=== PATIENT | female | born 1945 | race Caucasian/White ===

== ENCOUNTER 2017-05-24 18:41 | Inpatient (IN) | payer OTHER, MEDICARE ==
[~2017-05-24] VITALS: Ht 172.7 cm; Wt 102.1 kg
[2017-05-24 18:41] VITALS: BP_SYST 119
[2017-05-24 20:10] LABS: BASOPHILS # (AUTO) 0.2 K/uL (0.0-0.2); BASOPHILS % (AUTO) 1.6 % (0.0-2.0); EOSINOPHILS % (AUTO) 0.2 % (0.0-4.0); HEMATOCRIT 42.1 % (36-48); HEMOGLOBIN 13.6 g/dL (12.0-16.0); LYMPHOCYTES # (AUTO) 1.4 K/uL (1.0-5.5); LYMPHOCYTES % (AUTO) 14.4 % (20.5-51.5); MEAN CORPUSCULAR HEMOGLOBIN 30 pg (27-31); MEAN CORPUSCULAR HGB CONC 32 % (32-36); MEAN CORPUSCULAR VOLUME 94 fL (79.0-98.0); MONOCYTES # (AUTO) 0.5 K/uL (0.0-1.0); MONOCYTES % (AUTO) 4.7 % (1.7-9.3); NEUTROPHILS # (AUTO) 7.8 K/uL (1.8-7.7); NEUTROPHILS % (AUTO) 79.1 % (40.0-70.0); PLATELET COUNT (AUTO) 312 K/uL (130-430); RED BLOOD CELL COUNT(AUTO) 4.48 MIL/uL (4.2-6.2); RED CELL DISTRIBUTION WIDTH 13.4 % (9.0-15.0); WHITE BLOOD COUNT (AUTO) 9.9 K/uL (4.8-10.8)
[2017-05-24 20:31] LABS: ANION GAP 17 (5-15); CHLORIDE 105 mmol/L (98-107); GLUCOSE 186 mg/dL (70-99); POTASSIUM 4.9 mmol/L (3.5-5.1); SODIUM SERUM 141 mmol/L (136-145); UREA NITROGEN, BLOOD 36 mg/dL (8-21)
[2017-05-24 20:35] LABS: ALANINE AMINOTRANSFERASE 19 U/L (12-78); ALBUMIN 3.8 g/dL (3.4-4.8); ASPARTATE AMINOTRANSFERASE 19 U/L (10-37); LIPASE 85 U/L (73-393); TOTAL BILIRUBIN 0.8 mg/dL (0.0-1.0)
[2017-05-24 21:09] LABS: BILIRUBIN,URINE NEGATIVE (NEGATIVE); BLOOD, URINE NEGATIVE (NEGATIVE); CLARITY/URINE HAZY (CLEAR); GLUCOSE,URINE NEGATIVE (NEGATIVE); KETONES,URINE NEGATIVE (NEGATIVE); LEUKOCYTE ESTERASE ,URINE NEGATIVE (NEGATIVE); NITRITE, URINE POSITIVE (NEGATIVE); PH,URINE 5.5 (5.0-8.0); PROTEIN URINE 1+ (NEGATIVE)
[2017-05-24 21:12] LABS: COLOR,URINE ORANGE (YELLOW)
[2017-05-24] MEDS ORDERED: ONDANSETRON HCL 4 MG/2 ML VIAL IVP ONE (21:15)
[2017-05-24] MEDS ORDERED: NACL 0.9% 1,000 ML IV ONE (21:15)
[2017-05-24 21:34] LABS: BACTERIA,URINE FEW /HPF (None Seen); MUCUS,URINE None Seen /LPF (None Seen); RBC,URINE 0-3 /HPF (0-3)
[2017-05-24 21:35] LABS: FINE GRANULAR CASTS,URINE 0-10 /LPF (None Seen)
[2017-05-24 21:36] LABS: URINE AMORPHOUS URATE 2+ /HPF (None Seen)
[2017-05-24] MEDS ORDERED: LEVOFLOXACIN 500 MG/D5W 100 ML IV ONE (22:15)
[2017-05-24] MEDS ORDERED: CEL20 PO (22:39)
[2017-05-24] MEDS ORDERED: NOR10 PO (22:39)
[2017-05-24] MEDS ORDERED: FAMO40TA7 PO (22:39)
[2017-05-24] MEDS ORDERED: BACL10TA PO (22:39)
[2017-05-24] MEDS ORDERED: GLIP5TAB13 PO (22:39)
[2017-05-24] MEDS ORDERED: GABA-531 PO (22:39)
[2017-05-24] MEDS ORDERED: HYDR-1189 PO (22:39)
[2017-05-24] MEDS ORDERED: METF1000 PO (22:39)
[2017-05-24] MEDS ORDERED: GUAI100S14 PO (22:39)
[2017-05-24] MEDS ORDERED: ALBU2.5V7 INH (22:39)
[2017-05-24] MEDS ORDERED: LIP20 PO (22:39)
[2017-05-24] MEDS ORDERED: LEVO5DRO OP (22:39)
[2017-05-24] MEDS ORDERED: OXYB5TAB11 PO (22:39)
[2017-05-24] MEDS ORDERED: CLOT15CR5 TP (22:39)
[2017-05-24] MEDS ORDERED: METO-442 PO (22:39)
[2017-05-24] MEDS ORDERED: FURO-149 PO (22:39)
[2017-05-24] MEDS ORDERED: LORA2TAB PO (22:39)
[2017-05-24] MEDS ORDERED: CAPT100T2 PO (22:39)
[2017-05-24 23:15] VITALS: BP_SYST 114
[2017-05-24] MEDS ORDERED: ALBUTEROL SULFATE 0.083% 2.5 MG/3 ML VIAL.NEB INH PRN (23:15)
[2017-05-24] MEDS ORDERED: LORazepam 1 MG TABLET PO PRN (23:15)
[2017-05-24] MEDS ORDERED: DEXTROSE 50% JECT 50 ML DISP.SYRIN IVP PRN (23:30)
[2017-05-24] MEDS ORDERED: INSULIN REGULAR, HUMAN 100 UNITS/ML, 10 ML VIAL (novoLIN R) SUBCUT PRN (23:30)
[2017-05-24] MEDS ORDERED: FLU VACC QS 2017-18(36MOS+)/PF 0.5 ML/SYR SYRINGE I.M. PRN (23:45)
[2017-05-25] VITALS (7 sets, daily range): BP systolic 100–119
[2017-05-25] MEDS: NACL 0.9% 1,000 ML IV SCH ×2 (02:16→15:27)
[2017-05-25 06:22] LABS: BASOPHILS # (AUTO) 0.4 K/uL (0.0-0.2); HEMATOCRIT 42.3 % (36-48); HEMOGLOBIN 13.7 g/dL (12.0-16.0); LYMPHOCYTES # (AUTO) 1.7 K/uL (1.0-5.5); LYMPHOCYTES % (AUTO) 13.6 % (20.5-51.5); MEAN CORPUSCULAR HEMOGLOBIN 31 pg (27-31); MEAN CORPUSCULAR HGB CONC 32 % (32-36); MEAN CORPUSCULAR VOLUME 95 fL (79.0-98.0); MONOCYTES # (AUTO) 0.7 K/uL (0.0-1.0); MONOCYTES % (AUTO) 5.8 % (1.7-9.3); NEUTROPHILS # (AUTO) 9.7 K/uL (1.8-7.7); NEUTROPHILS % (AUTO) 77.6 % (40.0-70.0); PLATELET COUNT (AUTO) 273 K/uL (130-430); RED BLOOD CELL COUNT(AUTO) 4.46 MIL/uL (4.2-6.2); RED CELL DISTRIBUTION WIDTH 13.6 % (9.0-15.0); WHITE BLOOD COUNT (AUTO) 12.5 K/uL (4.8-10.8)
[2017-05-25 06:45] LABS: ALANINE AMINOTRANSFERASE 20 U/L (12-78); ALBUMIN 3.6 g/dL (3.4-4.8); ANION GAP 16 (5-15); ASPARTATE AMINOTRANSFERASE 20 U/L (10-37); CALCIUM 10.4 mg/dL (8.4-11.0); CHLORIDE 104 mmol/L (98-107); CREATININE 3.63 mg/dL (0.55-1.30); FREE T4 (FREE THYROXINE) 0.7 ng/dL (0.6-1.6); GLUCOSE 134 mg/dL (70-99); POTASSIUM 4.9 mmol/L (3.5-5.1); SODIUM SERUM 141 mmol/L (136-145); THYROID STIMULATING HORMONE 0.96 uIu/mL (0.34-4.82); TOTAL BILIRUBIN 0.8 mg/dL (0.0-1.0); UREA NITROGEN, BLOOD 39 mg/dL (8-21)
[2017-05-25] MEDS: METOPROLOL TARTRATE 50 MG TABLET PO SCH ×2 (09:00→20:48)
[2017-05-25] MEDS: LEVOBUNOLOL HCL 0.5% OP SCH (09:00)
[2017-05-25] MEDS: amLODIPine BESYLATE 10 MG TABLET PO SCH (09:00)
[2017-05-25] MEDS ORDERED: FUROSEMIDE 40 MG TABLET PO SCH (09:00)
[2017-05-25] MEDS ORDERED: OXYBUTYNIN CHLORIDE 5 MG TABLET PO SCH (09:00)
[2017-05-25] MEDS: BACLOFEN 10 MG TABLET PO SCH ×2 (09:06→20:48)
[2017-05-25] MEDS: CITALOPRAM HYDROBROMIDE 20 MG TABLET PO SCH (09:06)
[2017-05-25] MEDS: FAMOTIDINE 20 MG TABLET PO SCH (09:06)
[2017-05-25] MEDS: GABAPENTIN 300 MG CAPSULE PO SCH ×3 (09:06→20:46)
[2017-05-25] MEDS: HYDROcodone/ACETAMIN 5-325 MG TAB (NORCO/ VICODIN) PO SCH ×2 (10:38→20:47)
[2017-05-25 12:12] LABS: ANION GAP 13 (5-15); CALCIUM 10.1 mg/dL (8.4-11.0); CHLORIDE 106 mmol/L (98-107); CREATININE 3.41 mg/dL (0.55-1.30); GLUCOSE 105 mg/dL (70-99); POTASSIUM 4.6 mmol/L (3.5-5.1); SODIUM SERUM 141 mmol/L (136-145); UREA NITROGEN, BLOOD 42 mg/dL (8-21)
[2017-05-25] MEDS ORDERED: INSULIN ASPART 100 UNITS/ML, 10 ML VIAL (NovoLOG) SUBCUT PRN (15:30)
[2017-05-25] MEDS ORDERED: DEXTROSE 50% JECT 50 ML DISP.SYRIN IVP PRN (16:15)
[2017-05-25] MEDS: ATORVASTATIN 20 MG TABLET PO SCH (20:46)
[2017-05-25] MEDS ORDERED: LEVOFLOXACIN 250 MG TABLET PO SCH (21:00)
[2017-05-26 00:57] VITALS: BP_SYST 141
[2017-05-26] MEDS: NACL 0.9% 1,000 ML IV SCH ×2 (02:03→14:34)
[2017-05-26 03:14] VITALS: BP_SYST 125
[2017-05-26 06:56] LABS: ANION GAP 11 (5-15); CALCIUM 10.4 mg/dL (8.4-11.0); CHLORIDE 105 mmol/L (98-107); CREATININE 3.17 mg/dL (0.55-1.30); GLUCOSE 100 mg/dL (70-99); SODIUM SERUM 141 mmol/L (136-145); UREA NITROGEN, BLOOD 47 mg/dL (8-21)
[2017-05-26 07:47] LABS: BASOPHILS # (AUTO) 0.1 K/uL (0.0-0.2); BASOPHILS % (AUTO) 0.9 % (0.0-2.0); EOSINOPHILS % (AUTO) 0.3 % (0.0-4.0); LYMPHOCYTES # (AUTO) 1.9 K/uL (1.0-5.5); MONOCYTES # (AUTO) 0.9 K/uL (0.0-1.0); MONOCYTES % (AUTO) 7.1 % (1.7-9.3); NEUTROPHILS # (AUTO) 10.3 K/uL (1.8-7.7); NEUTROPHILS % (AUTO) 77.7 % (40.0-70.0); PLATELET COUNT (AUTO) 280 K/uL (130-430); WHITE BLOOD COUNT (AUTO) 13.2 K/uL (4.8-10.8)
[2017-05-26 07:57] LABS: HEMATOCRIT 39.6 % (36-48); MEAN CORPUSCULAR HEMOGLOBIN 31 pg (27-31); MEAN CORPUSCULAR HGB CONC 33 % (32-36); MEAN CORPUSCULAR VOLUME 94 fL (79.0-98.0); RED BLOOD CELL COUNT(AUTO) 4.23 MIL/uL (4.2-6.2); RED CELL DISTRIBUTION WIDTH 13.4 % (9.0-15.0)
[2017-05-26 08:00] VITALS: BP_SYST 103
[2017-05-26] MEDS: amLODIPine BESYLATE 10 MG TABLET PO SCH (09:00)
[2017-05-26] MEDS: METOPROLOL TARTRATE 50 MG TABLET PO SCH ×2 (09:00→20:44)
[2017-05-26] MEDS: FAMOTIDINE 20 MG TABLET PO SCH (09:05)
[2017-05-26] MEDS: GABAPENTIN 100 MG CAPSULE PO SCH ×3 (09:05→20:43)
[2017-05-26] MEDS: HYDROcodone/ACETAMIN 5-325 MG TAB (NORCO/ VICODIN) PO SCH ×2 (09:05→20:45)
[2017-05-26] MEDS: CITALOPRAM HYDROBROMIDE 20 MG TABLET PO SCH (09:05)
[2017-05-26] MEDS: BACLOFEN 10 MG TABLET PO SCH (09:06)
[2017-05-26] MEDS: LEVOBUNOLOL HCL 0.5% OP SCH (10:21)
[2017-05-26 12:00] VITALS: BP_SYST 134
[2017-05-26] MEDS ORDERED: LEVOFLOXACIN 500 MG/D5W 100 ML IV SCH (12:00)
[2017-05-26] MEDS ORDERED: LACTOBACILLUS RHAMNOSUS GG 1 CAP CAPSULE PO ONE (12:00)
[2017-05-26] MEDS: CEFEPIME 1 GM in D5W 50 ML IV SCH (14:29)
[2017-05-26 16:52] VITALS: BP_SYST 132
[2017-05-26 19:30] VITALS: BP_SYST 148
[2017-05-26] MEDS: LACTOBACILLUS RHAMNOSUS GG 1 CAP CAPSULE PO SCH (20:44)
[2017-05-26] MEDS: ATORVASTATIN 20 MG TABLET PO SCH (20:45)
[2017-05-27] VITALS (7 sets, daily range): BP systolic 140–157
[2017-05-27] MEDS: NACL 0.9% 1,000 ML IV SCH ×2 (02:22→13:55)
[2017-05-27 06:27] LABS: BASOPHILS # (AUTO) 0.1 K/uL (0.0-0.2); BASOPHILS % (AUTO) 1.5 % (0.0-2.0); EOSINOPHILS # (AUTO) 0.2 K/uL (0.0-0.4); HEMATOCRIT 42.6 % (36-48); LYMPHOCYTES # (AUTO) 1.4 K/uL (1.0-5.5); LYMPHOCYTES % (AUTO) 16.7 % (20.5-51.5); MEAN CORPUSCULAR HEMOGLOBIN 31 pg (27-31); MEAN CORPUSCULAR HGB CONC 33 % (32-36); MEAN CORPUSCULAR VOLUME 93 fL (79.0-98.0); MONOCYTES # (AUTO) 0.9 K/uL (0.0-1.0); MONOCYTES % (AUTO) 11.2 % (1.7-9.3); NEUTROPHILS # (AUTO) 5.8 K/uL (1.8-7.7); NEUTROPHILS % (AUTO) 68.6 % (40.0-70.0); PLATELET COUNT (AUTO) 266 K/uL (130-430); RED BLOOD CELL COUNT(AUTO) 4.56 MIL/uL (4.2-6.2); RED CELL DISTRIBUTION WIDTH 13.1 % (9.0-15.0); WHITE BLOOD COUNT (AUTO) 8.4 K/uL (4.8-10.8)
[2017-05-27 06:45] LABS: ANION GAP 11 (5-15); CALCIUM 9.7 mg/dL (8.4-11.0); CHLORIDE 105 mmol/L (98-107); CREATININE 2.09 mg/dL (0.55-1.30); GLUCOSE 138 mg/dL (70-99); POTASSIUM 3.8 mmol/L (3.5-5.1); SODIUM SERUM 140 mmol/L (136-145); UREA NITROGEN, BLOOD 37 mg/dL (8-21)
[2017-05-27] MEDS: GABAPENTIN 100 MG CAPSULE PO SCH ×3 (08:50→20:46)
[2017-05-27] MEDS: LACTOBACILLUS RHAMNOSUS GG 1 CAP CAPSULE PO SCH ×2 (08:50→20:46)
[2017-05-27] MEDS: CITALOPRAM HYDROBROMIDE 20 MG TABLET PO SCH (08:50)
[2017-05-27] MEDS: BACLOFEN 10 MG TABLET PO SCH (08:51)
[2017-05-27] MEDS: HYDROcodone/ACETAMIN 5-325 MG TAB (NORCO/ VICODIN) PO SCH ×2 (08:51→20:47)
[2017-05-27] MEDS: amLODIPine BESYLATE 10 MG TABLET PO SCH (08:52)
[2017-05-27] MEDS: METOPROLOL TARTRATE 50 MG TABLET PO SCH ×2 (08:52→20:47)
[2017-05-27] MEDS: FAMOTIDINE 20 MG TABLET PO SCH (08:52)
[2017-05-27] MEDS: LEVOBUNOLOL HCL 0.5% OP SCH (08:53)
[2017-05-27] MEDS: CEFEPIME 1 GM in D5W 50 ML IV SCH (14:29)
[2017-05-27] MEDS: ATORVASTATIN 20 MG TABLET PO SCH (20:46)
[2017-05-28 01:05] VITALS: BP_SYST 146
[2017-05-28 04:00] VITALS: BP_SYST 149
[2017-05-28 06:13] LABS: BASOPHILS # (AUTO) 0.1 K/uL (0.0-0.2); BASOPHILS % (AUTO) 1.3 % (0.0-2.0); EOSINOPHILS # (AUTO) 0.2 K/uL (0.0-0.4); EOSINOPHILS % (AUTO) 2.5 % (0.0-4.0); HEMATOCRIT 46.1 % (36-48); HEMOGLOBIN 14.8 g/dL (12.0-16.0); LYMPHOCYTES # (AUTO) 1.8 K/uL (1.0-5.5); LYMPHOCYTES % (AUTO) 18.7 % (20.5-51.5); MEAN CORPUSCULAR HEMOGLOBIN 30 pg (27-31); MEAN CORPUSCULAR HGB CONC 32 % (32-36); MEAN CORPUSCULAR VOLUME 94 fL (79.0-98.0); MONOCYTES # (AUTO) 1.2 K/uL (0.0-1.0); MONOCYTES % (AUTO) 12.3 % (1.7-9.3); NEUTROPHILS # (AUTO) 6.1 K/uL (1.8-7.7); NEUTROPHILS % (AUTO) 65.2 % (40.0-70.0); PLATELET COUNT (AUTO) 285 K/uL (130-430); RED BLOOD CELL COUNT(AUTO) 4.91 MIL/uL (4.2-6.2); WHITE BLOOD COUNT (AUTO) 9.4 K/uL (4.8-10.8)
[2017-05-28] MEDS: NACL 0.9% 1,000 ML IV SCH (06:31)
[2017-05-28 06:46] LABS: ALANINE AMINOTRANSFERASE 25 U/L (12-78); ALBUMIN 3.6 g/dL (3.4-4.8); ANION GAP 9 (5-15); ASPARTATE AMINOTRANSFERASE 27 U/L (10-37); CALCIUM 9.7 mg/dL (8.4-11.0); CHLORIDE 107 mmol/L (98-107); CREATININE 1.26 mg/dL (0.55-1.30); GLUCOSE 152 mg/dL (70-99); POTASSIUM 3.5 mmol/L (3.5-5.1); SODIUM SERUM 141 mmol/L (136-145); TOTAL BILIRUBIN 1.2 mg/dL (0.0-1.0); UREA NITROGEN, BLOOD 31 mg/dL (8-21)
[2017-05-28] MEDS ORDERED: CITALOPRAM HYDROBROMIDE 20 MG TABLET PO SCH (09:00)
[2017-05-28] MEDS: BACLOFEN 10 MG TABLET PO SCH (09:32)
[2017-05-28] MEDS: LACTOBACILLUS RHAMNOSUS GG 1 CAP CAPSULE PO SCH (09:33)
[2017-05-28] MEDS: GABAPENTIN 100 MG CAPSULE PO SCH ×2 (09:33→15:22)
[2017-05-28] MEDS: FAMOTIDINE 20 MG TABLET PO SCH (09:33)
[2017-05-28] MEDS: amLODIPine BESYLATE 10 MG TABLET PO SCH (09:34)
[2017-05-28] MEDS: METOPROLOL TARTRATE 50 MG TABLET PO SCH (09:35)
[2017-05-28] MEDS: HYDROcodone/ACETAMIN 5-325 MG TAB (NORCO/ VICODIN) PO SCH (09:38)
[2017-05-28] MEDS: LEVOBUNOLOL HCL 0.5% OP SCH (09:38)
[2017-05-28 12:24] VITALS: BP_SYST 138
[2017-05-28 14:45] VITALS: BP_SYST 135
[2017-05-28] MEDS: CEFEPIME 1 GM in D5W 50 ML IV SCH (15:23)
[2017-05-28 16:56] VITALS: BP_SYST 131
== END 2017-05-28 19:27 | DRG 871 ==
LOC: SED 18:41 → SMU 22:42 → STU 05-25 18:44 → SMU 05-27 17:00
PROVIDERS: ADMIT Family Medicine; ATTEND Internal Medicine
DX: A41.9 Sepsis, unspecified organism (principal); G93.41 Metabolic encephalopathy; N17.0 Acute kidney failure with tubular necrosis; F33.2 Major depressive disorder, recurrent severe without psychotic features; I69.351 Hemiplegia and hemiparesis following cerebral infarction affecting right dominant side; N39.0 Urinary tract infection, site not specified; E11.9 Type 2 diabetes mellitus without complications; E78.5 Hyperlipidemia, unspecified; H40.9 Unspecified glaucoma; I10 Essential (primary) hypertension; K21.9 Gastro-esophageal reflux disease without esophagitis; Z79.899 Other long term (current) drug therapy; Z87.440 Personal history of urinary (tract) infections; Z88.0 Allergy status to penicillin
CPT/HCPCS: 36415; 70450-TC; 71010; 71020-TC; 76770; 80048; 80053; 81000-TC; 82962; 83036; 83605; 83690-TC; 83735-TC; 83880; 84439; 84443-TC; 84484; 85025; 87040-TC; 87081; 87086; 93005; 94640; 94760; 96361; 96365; 96375; 97110-GP; 97116-GP; 97530-GP; 99285; J0692; J1815; J1956; J2405; J7030; J7060; Q2037

== ENCOUNTER 2018-10-06 17:49 | Emergency (ER) | payer OTHER, MEDICARE ==
[~2018-10-06] VITALS: Ht 172.7 cm; Wt 79.4 kg
[~2018-10-06 17:49] MED LIST: ALBU2.5V7 INH; BACL10TA PO; CAPT100T2 PO; CEL20 PO; CLOT15CR5 TP; FAMO40TA7 PO; FURO-149 PO; GABA-531 PO; GLIP5TAB13 PO; GUAI100S14 PO; HYDR-1189 PO; LEVO5DRO OP; LIP20 PO; LORA2TAB PO; METF1000 PO; METO-442 PO; NOR10 PO; OXYB5TAB11 PO
[2018-10-06 18:05] VITALS: BP_SYST 141
[2018-10-06 20:20] VITALS: BP_SYST 141
== END 2018-10-06 20:15 | disposition home or self-care (01) ==
LOC: SED 17:49
DX: M25.511 Pain in right shoulder (principal); R53.1 Weakness; E11.9 Type 2 diabetes mellitus without complications; K21.9 Gastro-esophageal reflux disease without esophagitis; I10 Essential (primary) hypertension; Z86.73 Personal history of transient ischemic attack (TIA), and cerebral infarction without residual deficits; Z88.0 Allergy status to penicillin; Z79.899 Other long term (current) drug therapy
CPT/HCPCS: 99283